=== PATIENT | female | born 1995 | race Caucasian/White ===

== ENCOUNTER 2017-04-12 18:47 | Emergency (ER) | payer SELFPAY ==
[~2017-04-12] VITALS: Ht 154.9 cm; Wt 56.8 kg
[2017-04-12 18:48] VITALS: BP 128/74; PULSE 99; RESP 18; TEMP 98.6; O2SAT 99
--- NOTE | 2017-04-12 21:13 | PD ---
HPI Chief Complaint: Back/ Neck Pain or Injury Time Seen by Provider: 21:04 Travel History International Travel<30 days: No Contact w/Intl Traveler<30days: No Traveled to known affect area: No History of Present Illness HPI 22-year-old female presents to emergency department with complains of neck and back pain after performing a handstand and falling down onto her head. She states that she had said scoliosis surgery twice in the past. She states that when she landed she had tingling in both hands and legs. This lasted for about 10 minutes. Injury occurred approximately 1-2 hours prior to presenting to the ER. She states that the tingling has resolved. She denies any syncope. She states the pain is mild. More upper thoracic and right sided neck. Pain is mild to moderate. Worse with bending and movement. PFSH Past Medical History Narrative Medical Scoliosis Tetanus Vaccination: < 5 Years ?: Not LMP: 04/02/2017 Past Surgical History Narrative Surgical Scoliosis surgery 2 Social History Alcohol Use: No Tobacco Use: No Substance Use: No Allergies-Medications (Allergen,Severity, Reaction): Coded Allergies: No Known Allergies (Unverified , 04/12/17) Reported Meds & Prescriptions Reported Meds & Active Scripts Active Flexeril (Cyclobenzaprine HCl) 10 Mg Tab 10 Mg PO TID Diclofenac Sodium DR (Diclofenac Sodium) 75 Mg Tabdr 75 Mg PO BID Review of Systems General / Constitutional: No: Fever Eyes: No: Visual changes HENT: Positive: Neck Stiffness, Neck Pain, No: Headaches Cardiovascular: No: Chest Pain or Discomfort Respiratory: No: Shortness of Breath Gastrointestinal: No: Abdominal Pain Genitourinary: No: Dysuria Musculoskeletal: Positive: Arthralgias, Pain, No: Myalgias, Limited ROM Skin: No Rash Neurologic: Positive: Paresthesia (resolved), No: Weakness Psychiatric: No: Depression Endocrine: No: Polydipsia Hematologic/Lymphatic: No: Easy Bruising Physical Exam Narrative GENERAL: Well-developed, well-nourished in no apparent distress. Nontoxic appearing. HEAD: Normocephalic, atraumatic. EYES: Pupils equal round and reactive. Extraocular motions intact. No scleral icterus. No injection or drainage. ENT: Nose clear. Throat without erythema, tonsillar hypertrophy or exudate. Uvula midline. Airway patent. NECK: Trachea midline. Supple, right paracervical and trapezius tenderness moves head freely. No central bony tenderness or spasm. CARDIOVASCULAR: Regular rate and rhythm without murmurs, gallops, or rubs. RESPIRATORY: Clear to auscultation. Breath sounds equal bilaterally. No wheezes , rales, or rhonchi. GASTROINTESTINAL: Abdomen soft, non-tender, nondistended. No hepato-splenomegaly , or palpable masses. No guarding. EXTREMITIES: No clubbing, cyanosis, or edema. No joint tenderness. BACK: Patient is a large surgical incision from the upper thoracic spine down to the lower lumbar spine without deformity. No flank tenderness. Patient has some mild paraspinal tenderness more on the right than the left. No point tenderness. No saddle anesthesia. She relates freely. Normal gait. NEUROLOGICAL: Awake, alert and oriented x 3 .Cranial nerves grossly intact. Motor and sensory grossly within normal limits. Normal speech. Data Data Last Documented VS Vital Signs Date Time Temp Pulse Resp B/P (MAP) Pulse Ox O2 Delivery O2 Flow Rate FiO2 04/12/17 18:48 98.6 99 18 128/74 (92) 99 Room Air Orders Orders Spine, Cervical - Ltd (Ap&Lat) (04/12/17 21:07) Spine, Thoracic-Ap/Lat/Sw(3vw) (04/12/17 21:07) Spine, Lumbar - Ltd (Ap & Lat) (04/12/17 21:07) Ct Brain W/O Iv Contrast(Rout) (04/12/17 21:40) Ct Cerv Spine W/O Contrast (04/12/17 21:40) Ondansetron Odt (Zofran Odt) (04/12/17 21:45) Ed Discharge Order (04/12/17 22:49) MDM Medical Decision Making Medical Screen Exam Complete: Yes Emergency Medical Condition: Yes Medical Record Reviewed: Yes Interpretation(s) Last [address] 04/12/172139 Signed Impressions: Service Date/Time: Wednesday, April 12, 2017 22:13 - CONCLUSION: Negative exam. Arie Stewart MD Cervical Spine CT 04/12/172139 Signed Impressions: Service Date/Time: Wednesday, April 12, 2017 22:13 - CONCLUSION: 1. No fracture. 2. Benign-appearing 9 mm cyst in the inferior aspect of the right lobe of the thyroid. Arie Stewart MD Thoracic Spine X-Ray 04/12/172106 Signed Impressions: Service Date/Time: Wednesday, April 12, 2017 21:30 - CONCLUSION: 1. S-shaped scoliosis of the thoracolumbar spine secured with Naik rods from the mid dorsal to the mid lumbar region. Hardware appears to be intact. 2. No acute fracture Arie Stewart MD Lumbar Spine X-Ray 04/12/172106 Signed Impressions: Service Date/Time: Wednesday, April 12, 2017 21:32 - CONCLUSION: 1. No acute fracture or listhesis. 2. Intact hardware as detailed above. Arie Stewart MD Cervical Spine X-Ray 04/12/172106 Signed Impressions: Service Date/Time: Wednesday, April 12, 2017 21:23 - CONCLUSION: No fracture. Arie Stewart MD Differential Diagnosis MDM: High Differential diagnoses: Fracture, sprain, strain, dislocation, contusion, neurovascular injury Narrative Course Patient has had a history of scoliosis surgery 2. She had a axial loading injury from doing a handstand. She had tingling in her arms and legs which have now resolved. Her exam does not reveal any central bony tenderness we will obtain a x-ray of her spine to rule out any acute fracture or disruption of hardware. I was notified at 2139 the x-ray tech who was performing the patient's x-rays that she became very nauseous and was going to vomit when she was being laying down for her images. She states that complain of a headache and neck pain. She performed her x-ray standing but the patient could not tolerate laying down. With these new historical and clinical findings we will go ahead and scan the patient's head to rule out any intracranial injury as well as imaging of the neck. The patient has refused her Zofran here in the ER stating that she no longer has nausea or headache. She has had CT scan of the head, neck and plain x-rays which all have been read as no acute fracture or disruption of hardware. No intracranial injury. The patient is resting comfortable and appears in no distress. This is fall, axial loading injury Diagnosis Primary Impression: Fall Qualified Codes: W19.XXXA - Unspecified fall, initial encounter Additional Impressions: axial loading injury neck and back sprain Patient Instructions: General Instructions Additional Instructions: Rest. Ice for the next few days. Medications as directed. Follow-up with medical doctor in one week. Return to the ER for any problems. Med/Other Pt SpecificInfo: Prescription(s) given Scripts Cyclobenzaprine (Flexeril) 10 Mg Tab 10 MG PO TID for Muscle Spasm, #30 TAB 0 Refills Prov: Sheyla Solomon DO 04/12/[address] (Diclofenac Sodium DR) 75 Mg Tabdr 75 MG PO BID, #20 TAB 0 Refills Prov: Sheyla Solomon DO 04/12/17 Disposition: 01 DISCHARGE HOME Condition: Stable Pop Caraballo Apr 12, 2017 21:13
[2017-04-12] MEDS ORDERED: ONDANSETRON ODT 4 MG TAB PO ONE (21:45)
--- NOTE | 2017-04-12 21:48 | RADRPT ---
EXAM DATE/TIME: 04/12/2017 21:23 [facility] COMPARISON: No previous studies available for comparison. INDICATIONS : Neck pain. Patient fell out of a headstand tonight. Pain and numbness since. MEDICAL HISTORY : Scoliosis. SURGICAL HISTORY : Thoracic and lumbar for scoliosis. ENCOUNTER: Initial ACUITY: 1 day PAIN SCORE: 8/10 LOCATION: Cervical. FINDINGS: Two projection examination was performed. There is normal alignment and curvature of the vertebral b odies down to the level of C7. No evidence of fracture or subluxation. Vertebral body height is caryn ntained. The disc spaces are maintained. The prevertebral soft tissues are of normal thickness. Th e atlanto-axial articulation is intact. CONCLUSION: No fracture. Arie Stewart MD on April 12, 2017 at 21:46 Board Certified Radiologist. This report was verified electronically.
--- NOTE | 2017-04-12 21:50 | RADRPT ---
EXAM DATE/TIME: 04/12/2017 21:30 [facility] COMPARISON: No previous studies available for comparison. INDICATIONS : Back pain. Patient fell out of a headstand tonight. Pain and numbness since. MEDICAL HISTORY : Scoliosis. SURGICAL HISTORY : Thoracic and lumbar for scoliosis. ENCOUNTER: Initial ACUITY: 1 day PAIN SCORE: 8/10 LOCATION: Thoracic. FINDINGS: Naik rods secure a S-shaped scoliosis of the thoracolumbar spine. Hardware appears to be intact with transpedicular fixation in the mid lumbar level. No fracture. CONCLUSION: 1. S-shaped scoliosis of the thoracolumbar spine secured with Naik rods from the mid dorsal to the mid lumbar region. Hardware appears to be intact. 2. No acute fracture Arie Stewart MD on April 12, 2017 at 21:46 Board Certified Radiologist. This report was verified electronically.
--- NOTE | 2017-04-12 21:54 | RADRPT ---
EXAM DATE/TIME: 04/12/2017 21:32 [facility] COMPARISON: No previous studies available for comparison. INDICATIONS : Back pain. Patient fell out of a headstand tonight. Pain and numbness since. MEDICAL HISTORY : Scoliosis. SURGICAL HISTORY : Thoracic and lumbar for scoliosis. ENCOUNTER: Initial ACUITY: 1 day PAIN SCORE: 8/10 LOCATION: Lumbar. FINDINGS: Two view examination was performed. Intact ganga secured appears to be an S-shaped scoliosis of the thoracolumbar spine. Lumbar spine is co nvex left. Transpedicular fixation at L3. Hardware all appears to be intact. No acute fracture or lis thesis. CONCLUSION: 1. No acute fracture or listhesis. 2. Intact hardware as detailed above. Arie Stewart MD on April 12, 2017 at 21:51 Board Certified Radiologist. This report was verified electronically.
--- NOTE | 2017-04-12 22:42 | RADRPT ---
EXAM DATE/TIME: 04/12/2017 22:13 [facility] COMPARISON: No previous studies available for comparison. INDICATIONS : Trauma, patient fell and landed on back of head and neck. RADIATION DOSE: 19.46 CTDIvol (mGy) MEDICAL HISTORY : scoliosis SURGICAL HISTORY : Naik rods ENCOUNTER: Initial ACUITY: 1 day PAIN SCALE: 8/10 LOCATION: neck TECHNIQUE: Volumetric scanning of the cervical spine was performed. Multiplanar reconstructions in the sagittal, coronal and oblique axial planes were performed. Using automated exposure control and adjustment o f the mA and/or kV according to patient size, radiation dose was kept as low as reasonably achievable to obtain optimal diagnostic quality images. DICOM format image data is available electronically f or review and comparison. FINDINGS: VERTEBRAE: Normal vertebral body height. ALIGNMENT: No evidence of subluxation. C2-C3: The bony spinal canal is normal in size. No evidence of disc bulge or herniation. The neural forami na are bilaterally patent. C3-C4: The bony spinal canal is normal in size. No evidence of disc bulge or herniation. The neural forami na are bilaterally patent. C4-C5: The bony spinal canal is normal in size. No evidence of disc bulge or herniation. The neural forami na are bilaterally patent. C5-C6: The bony spinal canal is normal in size. No evidence of disc bulge or herniation. The neural forami na are bilaterally patent. C6-C7: The bony spinal canal is normal in size. No evidence of disc bulge or herniation. The neural forami na are bilaterally patent. C7-T1: The bony spinal canal is normal in size. No evidence of disc bulge or herniation. The neural forami na are bilaterally patent. CONCLUSION: 1. No fracture. 2. Benign-appearing 9 mm cyst in the inferior aspect of the right lobe of the thyroid. Arie Stewart MD on April 12, 2017 at 22:39 Board Certified Radiologist. This report was verified electronically.
--- NOTE | 2017-04-12 22:43 | RADRPT ---
EXAM DATE/TIME: 04/12/2017 22:13 [facility] COMPARISON: No previous studies available for comparison. INDICATIONS : Trauma, patient fell and landed on back of head and neck. RADIATION DOSE: 30.75 CTDIvol (mGy) ; Patient motion MEDICAL HISTORY : scoliosis SURGICAL HISTORY : Naik rods ENCOUNTER: Initial ACUITY: 1 day PAIN SCALE: 8/10 LOCATION: cranial TECHNIQUE: Multiple contiguous axial images were obtained of the head. Using automated exposure control and adj ustment of the mA and/or kV according to patient size, radiation dose was kept as low as reasonably a chievable to obtain optimal diagnostic quality images. DICOM format image data is available electro nically for review and comparison. FINDINGS: CEREBRUM: The ventricles are normal for age. No evidence of midline shift, mass lesion, hemorrhage or acute in farction. No extra-axial fluid collections are seen. POSTERIOR FOSSA: The cerebellum and brainstem are intact. The 4th ventricle is midline. The cerebellopontine angle i s unremarkable. EXTRACRANIAL: The visualized portion of the orbits is intact. SKULL: The calvaria is intact. No evidence of skull fracture. CONCLUSION: Negative exam. Arie Stewart MD on April 12, 2017 at 22:40 Board Certified Radiologist. This report was verified electronically.
[2017-04-12] MEDS ORDERED: DICL75TA PO (22:49)
[2017-04-12] MEDS ORDERED: CYCL10TA PO (22:49)
== END 2017-04-12 23:22 | disposition home or self-care (01) ==
LOC: NEPK 18:47
DX: S13.9XXA Sprain of joints and ligaments of unspecified parts of neck, initial encounter (principal); S33.5XXA Sprain of ligaments of lumbar spine, initial encounter; R51 Headache; R11.0 Nausea; R20.2 Paresthesia of skin; M41.9 Scoliosis, unspecified; W18.30XA Fall on same level, unspecified, initial encounter; Z79.899 Other long term (current) drug therapy
CPT/HCPCS: 70450; 72040; 72072; 72100; 72125; 99285

== ENCOUNTER 2017-09-10 01:20 | Emergency (ER) | payer SELFPAY ==
[~2017-09-10] VITALS: Ht 154.9 cm; Wt 60.8 kg
[~2017-09-10 01:20] MED LIST: CYCL10TA PO; DICL75TA PO
[2017-09-10 01:22] VITALS: BP 116/63; PULSE 83; RESP 18; TEMP 98.2; O2SAT 100
[2017-09-10 02:12] LABS: BILIRUBIN, URINE NEG (NEG); BLOOD, URINE LARGE (NEG); GLUCOSE,URINE NEG (NEG); KETONE, URINE NEG (NEG); NITRITE,URINE NEG (NEG); URINE LEUKOCYTE ESTERASE NEG (NEG)
[2017-09-10] MEDS ORDERED: ZINC30TA PO (02:12)
[2017-09-10 02:14] LABS: AUTOMATED NEUTROPHIL # 4.6 TH/MM3 (1.8-7.7); BASOPHIL # 0.1 TH/MM3 (0-0.2); EOSINOPHIL # 0.1 TH/MM3 (0-0.4); EOSINOPHIL % 1.1 % (0.0-4.0); HEMATOCRIT 32.3 % (35.0-46.0); HEMOGLOBIN 10.9 GM/DL (11.6-15.3); LYMPH % 19.1 % (9.0-44.0); LYMPHOCYTE # 1.2 TH/MM3 (1.0-4.8); MEAN CELL VOLUME 79.9 FL (80.0-100.0); MEAN CORPUSCULAR HEMOGLOBIN 26.9 PG (27.0-34.0); MEAN CORPUSCULAR HGB CONC 33.7 % (32.0-36.0); MEAN PLATELET VOLUME 7.9 FL (7.0-11.0); MONO % 4.2 % (0.0-8.0); MONOCYTE # 0.3 TH/MM3 (0-0.9); NEUT % 74.6 % (16.0-70.0); PLATELET COUNT 378 TH/MM3 (150-450); RED BLOOD COUNT 4.04 MIL/MM3 (4.00-5.30); RED CELL DISTRIBUTION WIDTH 14.2 % (11.6-17.2); WHITE BLOOD COUNT 6.3 TH/MM3 (4.0-11.0)
[2017-09-10 02:22] LABS: URINE COLOR PINK (YELLW/STRAW)
[2017-09-10 02:24] LABS: AMORPHOUS SEDIMENT, URINE MOD; RBC, URINE INNUM /hpf (0-3); SQUAMOUS EPITHELIAL CELL URINE 0-5 /hpf (0-5)
[2017-09-10 02:25] LABS: CHLORIDE 108 MEQ/L (98-107); SODIUM (NA) 139 MEQ/L (136-145)
[2017-09-10 02:28] LABS: CALCIUM 8.7 MG/DL (8.5-10.1)
[2017-09-10 02:29] LABS: ALBUMIN 3.9 GM/DL (3.4-5.0); BICARBONATE 26.6 MEQ/L (21.0-32.0); BLOOD UREA NITROGEN 8 MG/DL (7-18); GLUCOSE,RANDOM 112 MG/DL (74-106)
[2017-09-10 02:32] LABS: ALT (GPT) 16 U/L (10-53); AST (GOT) 15 U/L (15-37); CREATININE 0.54 MG/DL (0.50-1.00); GLOMERULAR FILTRATION RATE 139 ML/MIN (>89)
[2017-09-10] MEDS ORDERED: SODIUM CHLOR 0.9% 1000 ML INJ 1,000 ML IV SCH ×2 (02:32→02:45)
[2017-09-10 02:33] LABS: TOTAL BILIRUBIN ADULT 0.3 MG/DL (0.2-1.0); TOTAL PROTEIN 8.1 GM/DL (6.4-8.2)
[2017-09-10 02:35] LABS: ALKALINE PHOSPHATASE 63 U/L (45-117)
--- NOTE | 2017-09-10 02:37 | PD ---
HPI Chief Complaint: Abdominal Pain Time Seen by Provider: 02:32 Travel History International Travel<30 days: No Contact w/Intl Traveler<30days: No Traveled to known affect area: No History of Present Illness HPI The patient is a 22-year-old female that complains of vomiting, midline epigastric pain for 1 hour. She states she has a slight gradual onset headache that she gets this frequently. She feels somewhat weak as well. She denies any syncopal or near syncopal spells. She took a zinc gluconate tablet right before she got nauseated. She denies any diarrhea. [facility] Past Medical History Medical History: Denies Significant Hx Musculoskeletal: Yes (scoliosis) Immunizations Current: Yes ?: Not LMP: 09/10/2017 Past Surgical History Neurologic Surgery: Yes (DOUBLE SCOLIOSIS SURGERY5-L3) Social History Alcohol Use: No Tobacco Use: No Substance Use: No Allergies-Medications (Allergen,Severity, Reaction): Coded Allergies: No Known Allergies (Unverified , 04/12/17) Reported Meds & Prescriptions Reported Meds & Active Scripts Active Reported Zinc Gluconate 30 Mg Tab 30 Mg PO ONCE Review of Systems Except as stated in HPI: all other systems reviewed are Neg Physical Exam Narrative GENERAL: The patient is alert, oriented 3 in slight apparent distress with her midline epigastric discomfort. Her vital signs are normal. SKIN: Focused skin assessment warm/dry. HEAD: Atraumatic. Normocephalic. EYES: Pupils equal and round. No scleral icterus. No injection or drainage. ENT: No nasal bleeding or discharge. Mucous membranes pink and moist. NECK: Trachea midline. No JVD. CARDIOVASCULAR: Regular rate and rhythm. No murmur appreciated. RESPIRATORY: No accessory muscle use. Clear to auscultation. Breath sounds equal bilaterally. GASTROINTESTINAL: Abdomen soft, with minimal tenderness in the midline epigastrium to direct palpation, nondistended. Hepatic and splenic margins not palpable. No guarding or rebound is present. MUSCULOSKELETAL: No obvious deformities. No clubbing. No cyanosis. No edema. NEUROLOGICAL: Awake and alert. No obvious cranial nerve deficits. Motor grossly within normal limits. Normal speech. PSYCHIATRIC: Appropriate mood and affect; insight and judgment normal. Data Data Last Documented VS Vital Signs Date Time Temp Pulse Resp B/P (MAP) Pulse Ox O2 Delivery O2 Flow Rate FiO2 09/10/17 03:10 81 20 96/55 (69) 100 Room Air 09/10/17 01:22 98.2 Orders Orders Complete Blood Count With Diff (09/10/17 01:49) Comprehensive Metabolic Panel (09/10/17 01:49) Urinalysis - C+S If Indicated (09/10/17 01:49) Ed Urine Pregnancytest Poc (09/10/17 01:49) Lipase (09/10/17 02:32) Iv Access Insert/Monitor (09/10/17 02:32) Ecg Monitoring (09/10/17 02:32) Oximetry (09/10/17 02:32) Ondansetron Inj (Zofran Inj) (09/10/17 02:45) Sodium Chlor 0.9% 1000 Ml Inj (Ns 1000 M (09/10/17 02:32) Sodium Chloride 0.9% Flush (Ns Flush) (09/10/17 02:45) Sodium Chlor 0.9% 1000 Ml Inj (Ns 1000 M (09/10/17 02:45) Labs Laboratory Tests Test 09/10/17 01:52 09/10/17 02:00 Urine Color PINK Urine Turbidity CLOUDY Urine pH 8.0 Urine Specific [place] 1.020 Urine Protein TRACE mg/dL Urine Glucose (UA) NEG mg/dL Urine Ketones NEG mg/dL Urine Occult Blood LARGE Urine Nitrite NEG Urine Bilirubin NEG Urine Urobilinogen 0.2 MG/DL Urine Leukocyte Esterase NEG Urine RBC INNUM /hpf Urine WBC 3-5 /hpf Urine Squamous Epithelial Cells 0-5 /hpf Urine Amorphous Sediment MOD Microscopic Urinalysis Comment CULT NOT INDICATED White Blood Count 6.3 TH/MM3 Red Blood Count 4.04 MIL/MM3 Hemoglobin 10.9 GM/DL Hematocrit 32.3 % Mean Corpuscular Volume 79.9 FL Mean Corpuscular Hemoglobin 26.9 PG Mean Corpuscular Hemoglobin Concent 33.7 % Red Cell Distribution Width 14.2 % Platelet Count 378 TH/MM3 Mean Platelet Volume 7.9 FL Neutrophils (%) (Auto) 74.6 % Lymphocytes (%) (Auto) 19.1 % Monocytes (%) (Auto) 4.2 % Eosinophils (%) (Auto) 1.1 % Basophils (%) (Auto) 1.0 % Neutrophils # (Auto) 4.6 TH/MM3 Lymphocytes # (Auto) 1.2 TH/MM3 Monocytes # (Auto) 0.3 TH/MM3 Eosinophils # (Auto) 0.1 TH/MM3 Basophils # (Auto) 0.1 TH/MM3 CBC Comment DIFF FINAL Differential Comment Blood Urea Nitrogen 8 MG/DL Creatinine 0.54 MG/DL Random Glucose 112 MG/DL Total Protein 8.1 GM/DL Albumin 3.9 GM/DL Calcium Level 8.7 MG/DL Alkaline Phosphatase 63 U/L Aspartate Amino Transf (AST/SGOT) 15 U/L Alanine Aminotransferase (ALT/SGPT) 16 U/L Total Bilirubin 0.3 MG/DL Sodium Level 139 MEQ/L Potassium Level 3.6 MEQ/L Chloride Level 108 MEQ/L Carbon Dioxide Level 26.6 MEQ/L Anion Gap 4 MEQ/L Estimat Glomerular Filtration Rate 139 ML/MIN Lipase 305 U/L MDM Medical Decision Making Medical Screen Exam Complete: Yes Emergency Medical Condition: Yes Medical Record Reviewed: Yes Interpretation(s) The CBC is normal except for hemoglobin of 10.9 and hematocrit of 32.3. The urine shows cloudy turbidity, trace protein, large blood, innumerable red cells with 3-5 white cells and culture is not indicated. The patient is on her menstrual period. The urine test is negative. Differential Diagnosis Gastroesophageal reflux disease, ulcer pain, pancreatitis, colitis, gastroenteritis, gastritis, anemia, electrolyte disorder Narrative Course The patient appears to have gastritis. Because a white count is low, this suggest a viral etiology. Plan: Patient will be given Prilosec and prochlorperazine. She should follow- up with her primary care physician. Diagnosis Primary Impression: Gastritis Med/Other Pt SpecificInfo: Prescription(s) given Scripts Prochlorperazine Maleate (Prochlorperazine Maleate) 10 Mg Tab 10 MG PO Q6H Y for NAUSEA OR VOMITING, #28 TAB 0 Refills Prov: Darrell Stone MD 09/10/17 Omeprazole (Omeprazole) 20 Mg Tab 20 MG PO DAILY, #30 TAB 0 Refills Prov: Darrell Stone MD 09/10/17 Disposition: 01 DISCHARGE HOME Condition: Stable Darrell Stone MD Sep 10, 2017 02:37
[2017-09-10] MEDS ORDERED: ONDANSETRON HCL 4 MG/2 ML VIAL IVP ONE (02:45)
[2017-09-10] MEDS ORDERED: SODIUM CHLORIDE 0.9% FLUSH 10 ML FLUSH IV FLUSH PRN (02:45)
[2017-09-10 03:09] VITALS: PULSE 81; RESP 20; O2SAT 100
[2017-09-10 03:10] VITALS: BP 96/55; PULSE 81; RESP 20; O2SAT 100
[2017-09-10] MEDS ORDERED: OMEP20TA93 PO (03:48)
[2017-09-10] MEDS ORDERED: PROC10TA PO (03:48)
[2017-09-10 04:24] VITALS: BP 103/56
== END 2017-09-10 04:28 | disposition home or self-care (01) ==
LOC: PHED 01:20
DX: K29.70 Gastritis, unspecified, without bleeding (principal); M41.9 Scoliosis, unspecified
CPT/HCPCS: 80053; 81001; 83690; 84703; 85025; 96361; 96374; 99284; J2405; J7030